=== PATIENT | female | born 1980 | race Caucasian/White ===

== ENCOUNTER 2019-07-24 09:37 | Emergency (ER) | payer OTHER ==
[~2019-07-24] VITALS: Ht 167.6 cm; Wt 77.1 kg
[2019-07-24] MEDS ORDERED: SERTRALINE20 MG/1 ML (10:01)
[2019-07-24] MEDS ORDERED: LAMOTRIGINE100 MG PO (10:02)
[2019-07-24] MEDS ORDERED: CLONAZEPAM0.5 M1 PO (10:02)
== END 2019-07-24 12:45 | disposition home or self-care (01) ==
LOC: ER 09:37
DX: L03.116 Cellulitis of left lower limb (principal); L21.8 Other seborrheic dermatitis